=== PATIENT | female | born 1975 | race African-American/Black ===

== ENCOUNTER 2019-07-25 18:34 | Emergency (ER) | payer OTHER ==
[~2019-07-25] VITALS: Ht 160 cm; Wt 61.2 kg
--- NOTE | 2019-07-25 18:39 | ED.ADGEN ---
Adult General Chief Complaint Chief Complaint ".. I ve been bleeding and cramping really bad the last two days....".. " My period is a little off..." HPI HPI Patient is a 44 year old female dependent who presents with above hx and complaints of abdomen cramping pain and vaginal bleeding. Patient states pain was very similar to menstruation however grew considerably more painful this afternoon. Pain is in lower pelvis area. Some lateralization to the right. Patient denies any trauma. Has had 2 previous pregnancies one vaginal delivery and one was ectopic . No history of STDs. No history of travel. No history of trauma. No history immunosuppression. Does have a history of uterine fibromas. And breast nodules. Patient will follow-up at [facility]. Recently moved here 2 weeks ago Review of Systems Review of Systems Constitutional: Denies fever or chills [] Eyes: Denies change in visual acuity, redness, or eye pain [] HENT: Denies nasal congestion or sore throat [] Respiratory: Denies cough or shortness of breath [] Cardiovascular: No additional information not addressed in HPI [] GI: Complaints of lower abdominal pain, nausea, and vaginal bleeding. Denies vomiting, bloody stools or diarrhea [] : Denies dysuria or hematuria [] Musculoskeletal: Denies back pain or joint pain [] Integument: Denies rash or skin lesions [] Neurologic: Denies headache, focal weakness or sensory changes [] Endocrine: Denies polyuria or polydipsia [] All other systems were reviewed and found to be within normal limits, except as documented in this note. Family History Family History Noncontributory Current Medications Current Medications Current Medications Medications (Trade) Dose Ordered Sig/Michelle Start Time Stop Time Status Last Admin Dose Admin Famotidine (Pepcid Vial) 20 mg 1X ONCE 07/25/19 19:30 07/25/19 19:31 DC 07/25/19 19:51 20 MG Lactated Ringer's 1,000 ml @ 1,000 mls/hr Q1H 07/25/19 18:40 07/25/19 19:39 DC 07/25/19 19:48 1,000 MLS/HR Ondansetron HCl (Zofran) 8 mg 1X ONCE 07/25/19 19:30 07/25/19 19:31 DC 07/25/19 19:49 8 MG Oxycodone/ Acetaminophen (Percocet 5/325) 2 tab 1X ONCE 07/25/19 23:30 07/25/19 23:14 DC 07/25/19 23:10 2 TAB Allergies Allergies Allergies Coded Allergies Type Severity Reaction Last Updated Verified Penicillins Allergy Unknown 07/25/19 Yes Physical Exam Physical Exam Constitutional: Well developed, well nourished, moderate acute distress, non- toxic appearance. [] HENT: Normocephalic, atraumatic, bilateral external ears normal, oropharynx moist, no oral exudates, nose normal. [] Eyes: PERRLA, EOMI, conjunctiva normal, no discharge. [] Neck: Normal range of motion, no tenderness, supple, no stridor. [] Cardiovascular:Heart rate regular rhythm, no murmur [] Lungs & Thorax: Bilateral breath sounds clear to auscultation [] Abdomen: Bowel sounds normal, soft, no tenderness, no masses, no pulsatile masses. [] Bleeding from os. Some lateralization to right adnexal area. Old surgical scars on abdomen . Mild rebound to the right lower abdomen. Skin: Warm, dry, no erythema, no rash. [] Back: No tenderness, no CVA tenderness. [] Extremities: No tenderness, no cyanosis, no clubbing, ROM intact, no edema. []No psoas sign Neurologic: Alert and oriented X 3, normal motor function, normal sensory function, no focal deficits noted. [] Psychologic: Affect anxious, judgement normal, mood normal. [] Current Patient Data Vital Signs Vital Signs Date Time Temp Pulse Resp B/P (MAP) Pulse Ox O2 Delivery O2 Flow Rate FiO2 07/25/19 22:07 52 20 94/51 (65) 100 Room Air 07/25/19 18:35 98.1 Lab Results Laboratory Tests Test 07/25/19 18:47 07/25/19 18:50 07/25/19 19:02 Urine Collection Type Unknown Urine Color [place] Urine Clarity Hazy Urine pH 5.5 Urine Specific [place] <=1.005 Urine Protein 30 mg/dl (NEG-TRACE) Urine Glucose (UA) Neg mg/dL (NEG) Urine Ketones (Stick) Neg mg/dL (NEG) Urine Blood Large (NEG) Urine Nitrite Neg (NEG) Urine Bilirubin Neg (NEG) Urine Urobilinogen Dipstick 0.2 mg/dL (0.2 mg/dL) Urine Leukocyte Esterase Trace (NEG) Urine RBC 20-40 /HPF (0-2) Urine WBC 11-20 /HPF (0-4) Urine Squamous Epithelial Cells Mod /LPF Urine Bacteria Few /HPF (0-FEW) White Blood Count 8.4 x10^3/uL (4.0-11.0) Red Blood Count 4.01 x10^6/uL (3.50-5.40) Hemoglobin 12.9 g/dL (12.0-15.5) Hematocrit 38.1 % (36.0-47.0) Mean Corpuscular Volume 95 fL (79-100) Mean Corpuscular Hemoglobin 32 pg (25-35) Mean Corpuscular Hemoglobin Concent 34 g/dL (31-37) Red Cell Distribution Width 14.0 % (11.5-14.5) Platelet Count 295 x10^3/uL (140-400) Neutrophils (%) (Auto) 58 % (31-73) Lymphocytes (%) (Auto) 31 % (24-48) Monocytes (%) (Auto) 10 % (0-9) H Eosinophils (%) (Auto) 1 % (0-3) Basophils (%) (Auto) 1 % (0-3) Neutrophils # (Auto) 4.9 x10^3uL (1.8-7.7) Lymphocytes # (Auto) 2.6 x10^3/uL (1.0-4.8) Monocytes # (Auto) 0.8 x10^3/uL (0.0-1.1) Eosinophils # (Auto) 0.1 x10^3/uL (0.0-0.7) Basophils # (Auto) 0.0 x10^3/uL (0.0-0.2) Prothrombin Time 9.3 SEC (9.4-11.4) L Prothrombin Time INR 0.9 (0.9-1.1) Activated Partial Thromboplast Time 26 SEC (23-33) Maternal Serum HCG Beta Subunit 1795 mIU/mL (0-6) H Sodium Level 137 mmol/L (136-145) Potassium Level 3.7 mmol/L (3.5-5.1) Chloride Level 104 mmol/L (98-107) Carbon Dioxide Level 27 mmol/L (21-32) Anion Gap 6 (6-14) Blood Urea Nitrogen 11 mg/dL (7-20) Creatinine 0.8 mg/dL (0.6-1.0) Estimated GFR (Cockcroft-Gault) 78.3 Glucose Level 94 mg/dL (70-99) Calcium Level 9.0 mg/dL (8.5-10.1) Total Bilirubin 0.3 mg/dL (0.2-1.0) Direct Bilirubin 0.1 mg/dL (0.0-0.2) Aspartate Amino Transferase (AST) 24 U/L (15-37) Alanine Aminotransferase (ALT) 15 U/L (14-59) Alkaline Phosphatase 79 U/L (46-116) Total Protein 7.3 g/dL (6.4-8.2) Albumin 4.1 g/dL (3.4-5.0) Serum Test, Qualitative Positive (NEG) POC Urine HCG, Qualitative hcg positive (Negative) Microbiology 07/25/19 Wet Prep - Final, Complete Microbiology 07/25/19 Wet Prep - Final, Complete EKG EKG [] Radiology/Procedures Radiology/Procedures [][place] [address] IMAGING REPORT Signed PATIENT: SUSANA SUAREZ ACCOUNT: [id number] : 1975 LOCATION: ER AGE: 44 SEX: F EXAM STATUS: REG ER ORD. PHYSICIAN: ELO SULLIVAN MD REASON: bleeding, pain, + urine preg PROCEDURE: OB <14 WKS W/TV OB <14 WKS W/TV History: Right lower quadrant pain, bleeding and spotting Comparison: None. Findings: Multiple transabdominal sonographic images of pelvis are submitted. Uterus measured 13.2 x 4.7 x 6.2 cm. Endometrium is thin at 0.3 cm, no intrauterine gestational sac. Reportedly there has been left oophorectomy. There is heterogeneity of the right adnexal region. Transvaginal ultrasound: Multiple transvaginal sonographic images of the pelvis are submitted. There is nabothian cyst up to 0.9 cm. Cervix measured about 5.2 cm in length. No intrauterine gestational sac is demonstrated. Uterus measured 11.3 x 5.2 x 6.6 cm. Endometrium measured about 0.3 cm in thickness. There again has been left oophorectomy, no solid or cystic lesion in this region. Right ovary measured 3.7 x 2.6 x 1.7 cm. There is a focus of abnormal heterogeneous echogenicity medial to the right ovary about 4.3 x 3.6 x 3.6 cm in size with diffuse internal echoes. This is not associated with significant hypervascularity. There is also hypoechoic lesion of the right ovary estimated about 1.9 x 1.7 x 2.2 cm, not associated with significant hypervascularity on color Doppler imaging. There is mild free fluid in the pelvis. Impression: 1. There is a complex heterogeneous lesion medial to the right ovary with characteristics of avascular mass up to 4.3 cm, consideration also of complex or hemorrhagic cystic lesion. Lack of significant hypervascularity would be atypical for ectopic although no intrauterine is demonstrated and the endometrium is thin. Correlation with quantitative beta hCG values and short-term follow-up imaging is recommended. There is minimal nonspecific free fluid in the pelvis. There has been left oophorectomy. There is a right ovarian cyst, also not associated with significant hypervascularity. Electronically signed by: Guicho Barney MD (07/25/2019 9:04 PM) [facility] DICTATED AND SIGNED BY: GUICHO BARNEY MD DATE: 07/25/192103 CC: ELO SULLIVAN MD; PCP,NO ~ Course & Med Decision Making Course & Med Decision Making Pertinent Labs and Imaging studies reviewed. (See chart for details) Discussed presentation testing and labs with Dr. Lange at [place]. Advised to have her follow-up on Sunday. [phone]. Follow-up at [facility]. Patient to take vitamins. Patient take Tylenol for pain. For marked pain may take Percocet up to 4 times a day. Patient continue pad counts. Patient return if any concerns. Veins of ectopic discussed at length with patient and her . [] Final Impression Final Impression .1. Threaten [] 2. Beta HCG 1795 3. Blood Type O+ 4. Rt. Complex lesion medial to Rt. Ovary 5. Hgb = 12.9 Dragon Disclaimer Dragon Disclaimer This [employer] medical record was generated, in whole or in part, using a voice recognition dictation system. Dragon Disclaimer This chart was dictated in whole or in part using Voice Recognition software in a busy, high-work load, and often noisy Emergency Department environment. It may contain unintended and wholly unrecognized errors or omissions. ELO SULLIVAN MD Jul 25, 2019 18:39
[2019-07-25] MEDS ORDERED: IV RINGERS SOLUTION,LACTATED 1,000 ML IV SCH (18:40)
[2019-07-25 19:15] LABS: BASO % 1 % (0-3); EOS # 0.1 x10^3/uL (0.0-0.7); EOS % 1 % (0-3); HEMATOCRIT 38.1 % (36.0-47.0); HEMOGLOBIN 12.9 g/dL (12.0-15.5); LYMPH # 2.6 x10^3/uL (1.0-4.8); LYMPH % 31 % (24-48); MEAN CORPUSCULAR HEMOGLOBIN 32 pg (25-35); MEAN CORPUSCULAR HGB CONC 34 g/dL (31-37); MEAN CORPUSCULAR VOLUME 95 fL (79-100); MONO # 0.8 x10^3/uL (0.0-1.1); MONO % 10 % (0-9); NEUT # 4.9 x10^3uL (1.8-7.7); NEUT % 58 % (31-73); PLATELET COUNT 295 x10^3/uL (140-400); RED BLOOD COUNT 4.01 x10^6/uL (3.50-5.40); WHITE BLOOD COUNT 8.4 x10^3/uL (4.0-11.0)
[2019-07-25 19:24] LABS: PREG TEST PT QUAL POSITIVE (NEG)
[2019-07-25 19:30] LABS: ALBUMIN 4.1 g/dL (3.4-5.0); CREATININE 0.8 mg/dL (0.6-1.0); DIRECT BILIRUBIN 0.1 mg/dL (0.0-0.2); GFR 78.3; POTASSIUM 3.7 mmol/L (3.5-5.1); TOTAL BILIRUBIN 0.3 mg/dL (0.2-1.0); TOTAL PROTEIN 7.3 g/dL (6.4-8.2)
[2019-07-25] MEDS ORDERED: FAMOTIDINE 20 MG/2 ML VIAL IVP ONE (19:30)
[2019-07-25] MEDS ORDERED: ONDANSETRON PF 4 MG/2 ML VIAL. IV ONE (19:30)
[2019-07-25 19:45] LABS: COLOR,URINE PINK
[2019-07-25 19:46] LABS: BACTERIA,URINE FEW /HPF (0-FEW); BILIRUBIN,URINE NEG (NEG); CLARITY,URINE HAZY; GLUCOSE,URINE NEG (NEG); NITRITE,URINE NEG (NEG); RBC,URINE 20-40 /HPF (0-2); SQUAMOUS EPITHELIAL CELL,UR MOD /LPF; UROBILINOGEN,URINE 0.2 mg/dL (0.2 mg/dL)
--- NOTE | 2019-07-25 21:07 | RAD ---
OB <14 WKS W/TV History: Right lower quadrant pain, bleeding and spotting Comparison: None. Findings: Multiple transabdominal sonographic images of pelvis are submitted. Uterus measured 13.2 x 4.7 x 6.2 cm. Endometrium is thin at 0.3 cm, no intrauterine gestational sac. Reportedly there has been left oophorectomy. There is heterogeneity of the right adnexal region. Transvaginal ultrasound: Multiple transvaginal sonographic images of the pelvis are submitted. There is nabothian cyst up to 0.9 cm. Cervix measured about 5.2 cm in length. No intrauterine gestational sac is demonstrated. Uterus measured 11.3 x 5.2 x 6.6 cm. Endometrium measured about 0.3 cm in thickness. There again has been left oophorectomy, no solid or cystic lesion in this region. Right ovary measured 3.7 x 2.6 x 1.7 cm. There is a focus of abnormal heterogeneous echogenicity medial to the right ovary about 4.3 x 3.6 x 3.6 cm in size with diffuse internal echoes. This is not associated with significant hypervascularity. There is also hypoechoic lesion of the right ovary estimated about 1.9 x 1.7 x 2.2 cm, not associated with significant hypervascularity on color Doppler imaging. There is mild free fluid in the pelvis. Impression: 1. There is a complex heterogeneous lesion medial to the right ovary with characteristics of avascular mass up to 4.3 cm, consideration also of complex or hemorrhagic cystic lesion. Lack of significant hypervascularity would be atypical for ectopic although no intrauterine is demonstrated and the endometrium is thin. Correlation with quantitative beta hCG values and short-term follow-up imaging is recommended. There is minimal nonspecific free fluid in the pelvis. There has been left oophorectomy. There is a right ovarian cyst, also not associated with significant hypervascularity. Electronically signed by: Jose Luis Barney MD (07/25/2019 9:04 PM) [facility]
[2019-07-25 22:07] VITALS: BP 94/51
[2019-07-25] MEDS ORDERED: OXYC1TAB15 PO (22:46)
[2019-07-25] MEDS ORDERED: ACET500T68 PO (22:46)
[2019-07-25] MEDS ORDERED: PNV1TABL34 PO (22:46)
[2019-07-25] MEDS ORDERED: oxyCODONE/APAP 5/325 1 TAB TABLET PO ONE (23:30)
[2019-07-30 01:06] LABS: CHLAMYDIA PROBE Negative (Negative)
== END 2019-07-25 23:10 | disposition home or self-care (01) ==
LOC: ER 18:34
DX: O20.0 Threatened abortion (principal); O34.81 Maternal care for other abnormalities of pelvic organs, first trimester; N83.201 Unspecified ovarian cyst, right side; Z3A.00 Weeks of gestation of pregnancy not specified; Z88.0 Allergy status to penicillin
CPT/HCPCS: 36415; 76801; 76817; 80048; 80076; 81001; 81025; 84702; 84703; 85025; 85610; 85730; 86592; 86703; 86705; 86709; 86803; 86900; 86901; 87086; 87340; 87491; 87591; 96374; 96375; 99285; J2405; J3490; J7120; Q0111

== ENCOUNTER → 2019-09-02 | Outpatient (CLI) | payer OTHER ==
[~2019-09-02] MED LIST: ACET500T68 PO; OXYC1TAB15 PO; PNV1TABL34 PO
--- NOTE | 2019-09-02 13:41 | RAD ---
EXAM: Pelvic sonogram. HISTORY: Bleeding. TECHNIQUE: Transabdominal sonographic imaging of the pelvis was performed. COMPARISON: None. FINDINGS: The uterus measures 9.2 x 4.6 x 5.0 cm. The endometrial stripe measures 4 mm in thickness. The left ovary is surgically absent. The right ovary is normal in size and demonstrates normal blood flow. There is no pelvic free fluid. IMPRESSION: 1. Surgically absent left ovary. 2. Otherwise, unremarkable pelvic sonogram. Electronically signed by: Haritha Alegre MD (09/02/2019 1:38 PM) [place] [id number]
== END | disposition home or self-care (01) ==
LOC: US 10:33
PROVIDERS: ATTEND Obstetrics & Gynecology
DX: N93.9 Abnormal uterine and vaginal bleeding, unspecified (principal); Z90.721 Acquired absence of ovaries, unilateral
CPT/HCPCS: 76856